=== PATIENT | female | born 1975 | race Caucasian/White ===

== ENCOUNTER 2018-07-09 19:44 | Inpatient (IN) | payer BC, OTHER ==
[~2018-07-09] VITALS: Ht 175.3 cm; Wt 86.2 kg
[~2018-07-09 19:44] MED LIST: ALEVE220 M1 PO; APAP500 PO; FIORICET 50-321 EACH PO; HYDROCODONE-AP1 EA10 PO; IBUPROFEN 800800 M1 PO; LISINOPRIL-HCT1 EACH PO; LISINOPRIL30 MG PO; LORTAB 5 MG/5001 TA1 PO; LUNESTA2 MG PO; NORCO 10-325 T1 EACH PO; NORCO 5-325 TA1 EACH PO; PERCOCET 5-3251 EACH PO; PHENERGAN 25 MG25 M1 PO; PREDNISOLONE; PRILOSEC 20 MG20 MG PO; SOMA250 MG PO; ULTRAM 50MG TAB50 MG PO; VIBRAMYCIN 100100 MG; ZOFRAN 4 MG ORAL4 M1 DIS; ZOFRAN ODT4 MG PO
[2018-07-09 19:51] VITALS: BP 171/93
[2018-07-09 20:28] LABS: URINE BILIRUBIN NEGATIVE (Negative); URINE BLOOD NEGATIVE (Negative); URINE CLARITY CLEAR; URINE COLOR YELLOW; URINE GLUCOSE-RANDOM* NEGATIVE (Negative); URINE KETONES NEGATIVE (Negative); URINE LEUKOCYTES-REFLEX NEGATIVE (Negative); URINE NITRITE-REFLEX NEGATIVE (Negative); URINE PROTEIN (DIPSTICK) NEGATIVE (Negative); URINE SPECIFIC GRAVITY 1.015 (1.005-1.035); URINE UROBILINOGEN 0.2 E.U./dl (0.2-1.0)
[2018-07-09 21:05] LABS: ABSOLUTE NEUTROPHILS 2.6 thou/uL (1.4-8.2); BASOPHILS 0.3 % (0.0-2.0); EOSINOPHILS 5.2 % (0.0-3.0); HEMOGLOBIN 11.1 gm/dL (12.0-15.0); LYMPHOCYTES 29.8 % (24.0-44.0); MCH 30.2 pg (26.0-34.0); MCHC 34.6 g/dL (28.0-37.0); MCV 87.3 fL (80.0-100.0); MONOCYTES 11.6 % (1.0-8.0); PLATELET COUNT 238 thou/uL (150-400); POLYS 53.1 % (36.0-66.0); RBC 3.67 mil/uL (4.20-5.00); WBC 4.8 thou/uL (4.0-11.0)
[2018-07-09 21:12] LABS: CALCIUM 8.8 mg/dL (8.5-10.1); CREATININE 0.6 mg/dL (0.6-1.0); POTASSIUM 3.5 mmol/L (3.5-5.1)
[2018-07-09 21:19] LABS: ALBUMIN 3.6 g/dL (3.4-5.0); TOTAL BILIRUBIN 0.2 mg/dL (<0.1-1.0); TOTAL PROTEIN 7.7 g/dL (6.4-8.2)
[2018-07-09] MEDS ORDERED: LUNESTA3 MG PO (23:41)
[2018-07-09] MEDS ORDERED: COZAAR 25 MG TA25 M1 PO (23:42)
[2018-07-09] MEDS ORDERED: NEURONTIN600 MG PO (23:42)
[2018-07-09 23:43] VITALS: BP 126/78
[2018-07-09 23:46] VITALS: BP 130/85
[2018-07-10 01:10] VITALS: BP 128/85
[2018-07-10 03:50] VITALS: BP 124/83
[2018-07-10 08:05] VITALS: BP 123/73
[2018-07-10 16:47] VITALS: BP 141/93
[2018-07-10 19:56] VITALS: BP 136/86
[2018-07-11 04:36] VITALS: BP 127/81
[2018-07-11 06:11] LABS: CALCIUM 9.1 mg/dL (8.5-10.1); CREATININE 0.6 mg/dL (0.6-1.0); POTASSIUM 3.2 mmol/L (3.5-5.1)
[2018-07-11 07:10] VITALS: BP 126/83
[2018-07-11 11:50] VITALS: BP 123/71
[2018-07-11 20:28] VITALS: BP 150/98
[2018-07-12 07:13] VITALS: BP 135/91
[2018-07-12] MEDS ORDERED: REGLAN 10 MG TA10 MG PO (09:33)
[2018-07-12] MEDS ORDERED: NORCO 7.5-3251 EACH PO (09:33)
[2018-07-12 10:45] VITALS: BP 135/91
== END 2018-07-12 14:00 | disposition home or self-care (01) | DRG 392 ==
LOC: ER 19:44 → EROBS 23:05 → 4E 23:05
PROVIDERS: Nurse Practitioner Family; Physician Assistant
DX: R10.13 Epigastric pain (principal); K86.1 Other chronic pancreatitis; I10 Essential (primary) hypertension; F41.9 Anxiety disorder, unspecified; E87.6 Hypokalemia; R11.2 Nausea with vomiting, unspecified; G62.9 Polyneuropathy, unspecified; G47.00 Insomnia, unspecified; R74.8 Abnormal levels of other serum enzymes; Z90.49 Acquired absence of other specified parts of digestive tract; Z90.710 Acquired absence of both cervix and uterus; Z79.899 Other long term (current) drug therapy; Z88.8 Allergy status to other drugs, medicaments and biological substances
CPT/HCPCS: 10084

== ENCOUNTER 2018-07-20 21:01 | Emergency (ER) | payer BC, OTHER ==
[~2018-07-20] VITALS: Ht 175.3 cm; Wt 86.2 kg
[~2018-07-20 21:01] MED LIST changes: +COZAAR 25 MG TA25 M1 PO; +LUNESTA3 MG PO; +NEURONTIN600 MG PO; +NORCO 7.5-3251 EACH PO; +REGLAN 10 MG TA10 MG PO
[2018-07-20] MEDS ORDERED: NORCO 10-325 T1 EACH PO (23:24)
[2018-07-20] MEDS ORDERED: ATIVAN0.5 MG PO (23:24)
[2018-07-20 23:45] VITALS: BP 190/97
== END 2018-07-20 23:46 | disposition home or self-care (01) ==
LOC: ER 21:01
DX: R51 Headache (principal); F41.9 Anxiety disorder, unspecified; M75.42 Impingement syndrome of left shoulder; I10 Essential (primary) hypertension; Z90.49 Acquired absence of other specified parts of digestive tract; Z90.710 Acquired absence of both cervix and uterus; Z88.8 Allergy status to other drugs, medicaments and biological substances

== ENCOUNTER → 2019-02-15 | Outpatient (CLI) | payer BC, OTHER ==
[~2019-02-15] MED LIST changes: +ATIVAN0.5 MG PO
== END ==
LOC: RAD 14:16
DX: K57.90 Diverticulosis of intestine, part unspecified, without perforation or abscess without bleeding (principal); I87.8 Other specified disorders of veins; Z90.49 Acquired absence of other specified parts of digestive tract

== ENCOUNTER 2019-08-22 05:55 | Inpatient (IN) | payer BC, OTHER ==
[~2019-08-22] VITALS: Ht 175.3 cm; Wt 104.5 kg
[2019-08-22 05:56] VITALS: BP 163/96
[2019-08-22 06:35] LABS: URINE BILIRUBIN NEGATIVE (Negative); URINE BLOOD NEGATIVE (Negative); URINE CLARITY CLEAR; URINE COLOR YELLOW; URINE GLUCOSE-RANDOM* NEGATIVE (Negative); URINE KETONES NEGATIVE (Negative); URINE NITRITE-REFLEX NEGATIVE (Negative); URINE PROTEIN (DIPSTICK) NEGATIVE (Negative); URINE SPECIFIC GRAVITY 1.015 (1.005-1.035); URINE UROBILINOGEN 0.2 E.U./dl (0.2-1.0)
[2019-08-22 06:36] LABS: URINE LEUKOCYTES-REFLEX 1+ (Negative)
[2019-08-22] MEDS ORDERED: IRBESARTAN75 MG PO (06:38)
[2019-08-22 07:04] LABS: CASTS None Seen /LPF (None Seen); MUCUS 0-3 Light strn/LPF (None Seen); SQUAMOUS >10 Many /LPF (0-3)
[2019-08-22 07:05] LABS: BACTERIA-REFLEX 1-9 Few /HPF (None Seen); CRYSTALS None Seen /LPF (None Seen); URINE RBC 0-2 Rare /HPF (0-2); URINE WBC-REFLEX 0-5 Rare /HPF (0-5)
[2019-08-22 07:46] LABS: CALCIUM 10.7 mg/dL (8.5-10.1); CREATININE 0.7 mg/dL (0.6-1.0); POTASSIUM 3.3 mmol/L (3.5-5.1)
[2019-08-22 07:52] LABS: ALBUMIN 4.5 g/dL (3.4-5.0); TOTAL BILIRUBIN 0.6 mg/dL (<0.1-1.0); TOTAL PROTEIN 7.9 g/dL (6.4-8.2)
[2019-08-22 09:04] LABS: ABSOLUTE NEUTROPHILS 2.7 thou/uL (1.4-8.2); BASOPHILS 1.7 % (0.0-2.0); EOSINOPHILS 5.2 % (0.0-3.0); HEMATOCRIT 36.1 % (37.0-47.0); HEMOGLOBIN 11.9 gm/dL (12.0-15.0); LYMPHOCYTES 20.6 % (24.0-44.0); MCH 29.5 pg (26.0-34.0); MCHC 32.9 g/dL (28.0-37.0); MCV 89.6 fL (80.0-100.0); MONOCYTES 8.6 % (1.0-8.0); PLATELET COUNT 268 thou/uL (150-400); POLYS 63.9 % (36.0-66.0); RBC 4.03 mil/uL (4.20-5.00); RDW 14.3 % (10.5-14.5); WBC 4.3 thou/uL (4.0-11.0)
[2019-08-22 12:30] VITALS: BP 142/93
[2019-08-22 12:37] VITALS: BP 147/95
[2019-08-22 14:15] VITALS: BP 132/88
--- NOTE | 2019-08-22 15:05 | NUR ---
PT ARRIVED TO UNIT AT APPROX 1300 FROM ER. PT ALERT AND ORIENTED, VSS, C/O PAIN AND NAUSEA- MEDICATED PER ORDERS. O2 SATS WNL ON ROOM AIR. DENIES CP, SOB. PT HAS NOT VOMITED SINCE BEING IN THE ER. ADMISSION COMPLETE, PT NOT MONITORED PT IS MED SURG STATUS. PT CURRENTLY RESTING COMFORTABLY IN BED. DENYING OF NEEDS CONCERNS AT THIS TIME. CONTINUING TO MONITOR.
[2019-08-22 18:48] LABS: AMP/METHAMP Negative (Negative); BARBITURATES Negative (Negative); BENZODIAZEPINES Negative (Negative); COCAINE Negative (Negative); METHADONE Negative (Negative); OPIATES POSITIVE (Negative); PCP Negative (Negative)
[2019-08-22 19:45] VITALS: BP 161/93
[2019-08-23 00:35] VITALS: BP 138/86
--- NOTE | 2019-08-23 01:42 | NUR ---
ASSESSMENTS CHARTED, MEDS GIVEN CHARTED. PATIENT RESTING IN BED DURING SHIFT C/O CONSTANT PAIN IN RIGHT UPPER QUADRANT OF ABDOMEN. ON CLEAR LIQUID DIET UNTIL N/V HAS PASSED. UP AT EB IN ROOM. DENIED SKIN ISSUES. C/O PAIN IN RIGHT UPPER QUADRANT. RECEIVED LASIX TODAY. DIURESING WELL. VSS.
[2019-08-23 04:45] VITALS: BP 133/88
[2019-08-23 07:46] VITALS: BP 138/89
[2019-08-23 09:41] LABS: CHOLESTEROL 208 mg/dL (<200); HDL CHOLESTEROL 87 mg/dL (>40); LDL CHOLESTEROL 112 mg/dL (<100); TC:HDL 2.4 Ratio (Not establshd); TRIGLYCERIDE 45 mg/dL (<150); VLDL 9 mg/dL (<40)
--- NOTE | 2019-08-23 15:27 | NUR ---
ASSUMED CARE AT SHIFT CHANGE, ALERT AND ORIENTED X4. VSS, C/O ABD PAIN AND MEDICATED NEEDED. NO N/V TODAY, TOLERATED CLEAR LIQ AND WILL CONTINUE WITH POC.
[2019-08-23 15:45] VITALS: BP 124/78
[2019-08-23 19:32] VITALS: BP 139/81
[2019-08-24 03:23] VITALS: BP 133/76
--- NOTE | 2019-08-24 05:27 | NUR ---
ASSUMED PT CARE AT 1900. VSS. PT A&0X4, COMPLAINING OF ABD PAIN WHICH WAS MANAGED PER OCT. PT STILL ON CLR LIQ DIET, PT IS STABLE, PRETTY UNEVENTFUL NOC ASIDES PAIN MANAGEMNT. WILL CONTINUE TO MONITOR
[2019-08-24 05:38] LABS: CALCIUM 10.1 mg/dL (8.5-10.1); CREATININE 0.7 mg/dL (0.6-1.0); MAGNESIUM 1.9 mg/dL (1.8-2.4); POTASSIUM 3.2 mmol/L (3.5-5.1)
[2019-08-24 07:28] VITALS: BP 140/88
[2019-08-24 11:49] VITALS: BP 136/87
[2019-08-24 17:59] VITALS: BP 129/68
--- NOTE | 2019-08-25 05:03 | NUR ---
Pt. rested quietly at intervals during the night when checked on during frequent rounds. She c/o chronic abdominal pain and po pain meds given (see emar) with some relief noted. No c/o nausea and tolerating full liquid diet.
[2019-08-25 07:52] VITALS: BP 116/67
--- NOTE | 2019-08-25 11:57 | NUR ---
PT A&OX4, VSS, PAIN IN ABDOMEN. PATIENT HAS NAUSEA, DENIES VOMITING AND DIARRHEA. PATIENT ADVANCED TO SOFT FIBER RESTRICTED DIET. PAIN MEDICATION GIVEN. NO SIGNS OF DISTRESS. WILL CONTINUE TO MONITOR.
[2019-08-25] MEDS ORDERED: PERCOCET 7.5-31 EAC1 PO (15:04)
[2019-08-25 15:11] VITALS: BP 116/67
== END 2019-08-25 18:03 | disposition home or self-care (01) | DRG 392 ==
LOC: ER 05:55 → EROBS 10:53 → 2N 10:53 → 4W 08-24 20:46
PROVIDERS: Emergency Medicine; Hospitalist; Nurse Practitioner; Nurse Practitioner Acute Care; ADMIT Hospitalist
DX: R10.9 Unspecified abdominal pain (principal); K86.1 Other chronic pancreatitis; N39.0 Urinary tract infection, site not specified; G89.29 Other chronic pain; I10 Essential (primary) hypertension; K21.9 Gastro-esophageal reflux disease without esophagitis; G47.00 Insomnia, unspecified; G62.9 Polyneuropathy, unspecified; F41.9 Anxiety disorder, unspecified; E87.6 Hypokalemia; Z90.710 Acquired absence of both cervix and uterus; Z90.49 Acquired absence of other specified parts of digestive tract; Z79.899 Other long term (current) drug therapy; Z88.8 Allergy status to other drugs, medicaments and biological substances
CPT/HCPCS: 10047; 10194